=== PATIENT | male | born 1945 | race Caucasian/White ===

== ENCOUNTER 2016-11-27 20:57 | Inpatient (IN) | payer MEDICAID, MEDICARE, OTHER ==
[~2016-11-27] VITALS: Ht 177.8 cm; Wt 93.4 kg
--- NOTE | 2016-11-27 21:10 | NUR ---
PT BB RA; FEVER AT SNF. PT NONVERBAL. RR EVEN AND UNLABORED. NO SOB NOTED. NAD NOTED. NO NVD AT THIS TIME. PT NOT DIAPHORETIC. PT GOWNED AND PLACED ON MONITOR WAITING FOR MD LIU.
[2016-11-27 21:24] LABS: BASOPHILS # (AUTO) 0.2 /CMM (0.0-0.2); BASOPHILS % (AUTO) 1.8 % (0.0-2.0); HEMATOCRIT 42 % (39-51); HEMOGLOBIN 13.9 g/dL (13.5-17.5); LYMPHOCYTES # (AUTO) 0.9 /CMM (0.8-4.8); LYMPHOCYTES % (AUTO) 8.3 % (20.0-44.0); MEAN CORPUSCULAR HEMOGLOBIN 30 PG (26.0-33.0); MEAN CORPUSCULAR HGB CONC 33 g/dl (31.0-36.0); MEAN CORPUSCULAR VOLUME 89 fL (80-96); MONOCYTES # (AUTO) 0.2 /CMM (0.1-1.30); MONOCYTES % (AUTO) 1.9 % (2.0-12.0); NEUTROPHILS # (AUTO) 9.3 /CMM (1.8-8.9); PLATELET COUNT (AUTO) 113 /CMM (150-450); RDW COEFFICIENT OF VARIATION 15.8 (11.5-15.0); RED BLOOD CELL COUNT(AUTO) 4.68 MIL/uL (4.5-6.0); WHITE BLOOD COUNT (AUTO) 10.6 K/uL (4.3-11.0)
[2016-11-27] MEDS ORDERED: IV SET PRIMARY 1 EA INFUS.SET MC ONE ×2 (21:24→23:28)
[2016-11-27] MEDS ORDERED: IV NS 0.9% 3,000 ML ONE (21:24)
[2016-11-27] MEDS ORDERED: VANCOMYCIN 1 GM in IV D5W 250 ML IV ONE (21:30)
[2016-11-27] MEDS ORDERED: IV NS 0.9% 1,000 ML BAG IV ONE (21:30)
[2016-11-27] MEDS ORDERED: LEVOFLOXACIN 750 MG /D5W 150ML 150 ML IV ONE (21:30)
--- NOTE | 2016-11-27 21:30 | NUR ---
URINE COLLECTED. XRAY AT BEDSIDE
[2016-11-27 21:38] LABS: CALCIUM, SERUM 9.2 mg/dL (8.5-10.1); CREATININE 2.5 mg/dL (0.6-1.3); POTASSIUM 5.1 mmol/L (3.5-5.1)
[2016-11-27 21:40] LABS: INR 1.26 (0.87-1.13); PROTHROMBIN TIME 13.3 SECS (9.5-12.7)
[2016-11-27 21:44] LABS: APPEARANCE,URINE Clear (CLEAR); BILIRUBIN,URINE Negative (NEGATIVE); BLOOD, URINE Moderate Ery/uL (NEGATIVE); COLOR,URINE Yellow (YELLOW); KETONES,URINE Negative (NEGATIVE); LEUKOCYTE ESTERASE ,URINE Negative (NEGATIVE); NITRITE, URINE Negative (NEGATIVE); PH,URINE 5.5 (5.0-8.0); PROTEIN,URINE >=300 mg/dl (NEGATIVE); UGLUCOSE Negative (NEGATIVE)
[2016-11-27 21:45] LABS: TROPONIN I 0.269 ng/mL (0.00-0.056)
[2016-11-27 21:46] LABS: LACTIC ACID 1.6 mmol/L (0.4-2.0)
[2016-11-27] MEDS ORDERED: IV SET PRIMARY PUMP SET 1 EA INFUS.SET MC ONE ×3 (21:49→23:40)
[2016-11-27] MEDS ORDERED: IV D5W 250 ML IV ONE (21:49)
[2016-11-27] MEDS ORDERED: VANCOMYCIN 1 GM VIAL ONE (21:49)
[2016-11-27 21:50] LABS: ALBUMIN 3.1 g/dL (3.4-5.0); BILIRUBIN,DIRECT 0.4 mg/dL (0.0-0.2); BILIRUBIN,TOTAL 1.1 mg/dL (0.2-1.0); TOTAL PROTEIN, SERUM 8.4 g/dL (6.4-8.2)
[2016-11-27 21:59] LABS: ADD URINE CULTURE NO; BACTERIA,URINE Few /HPF (None Seen); SQUAMOUS EPITHELIAL CELL,UR Few /HPF (None Seen); URINE AMORPHOUS URATE Many /HPF (None Seen); WBC,URINE 0-2 /HPF (0-3)
[2016-11-27 22:00] LABS: MUCUS,URINE Few /LPF (None Seen)
--- NOTE | 2016-11-27 22:22 | NUR ---
PER DR. MUHAMMAD TO HOLD IV NS BOLUS AT THIS TIME.
[2016-11-27] MEDS ORDERED: FUROSEMIDE 100 MG/10 ML VIAL ONE (22:26)
[2016-11-27] MEDS ORDERED: FUROSEMIDE 40 MG/4 ML VIAL IV ONE ×2 (22:30)
[2016-11-27] MEDS ORDERED: CEFTRIAXONE 2 G in IV D5W 100 ML IV SCH (23:00)
--- NOTE | 2016-11-27 23:03 | NUR ---
PT INTUBATED DR. PINO, VS 147/99 HR 79 02 SAT 94% 23CM AT THE LIP ET TUBE 7.5
[2016-11-27] MEDS ORDERED: PROPOFOL 100 ML IV ONE (23:09)
--- NOTE | 2016-11-27 23:11 | NUR ---
VENT SETTINGS AC 12, VT 550, FI02 40%, PEEP 5
[2016-11-27] MEDS ORDERED: ACETAMINOPHEN 650 MG/SUPP.RECT RC ONE (23:15)
--- NOTE | 2016-11-27 23:20 | NUR ---
DR. MUHAMMAD AT BEDSIDE FOR LP, UNSUCCESSFUL.
[2016-11-27 23:23] VITALS: BP 141/86
--- NOTE | 2016-11-27 23:26 | NUR ---
RT NOTE PT INTUBATED PER MD ORDER. 7.5 ETT 23 @ LIP. ALARMS SET PER PROTOCOL AND AUDIBLE. VENT PLUGGED IN TO RED OUTLET. AMBU BAG AT BEDSIDE. Addendum: 11/27/16 at 2327 by RAQUEL MAGAÑA RT Amended: Links added.
[2016-11-27] MEDS ORDERED: CEFTRIAXONE 1GM BAG (ER ONLY) 50 ML IV ONE (23:28)
[2016-11-27] MEDS ORDERED: PROPOFOL 100 ML IV PRN (23:30)
--- NOTE | 2016-11-27 23:59 | NUR ---
REPORT GIVEN TO BUSINESS TRAVEL CONSULTANT ELVIRA FOR BED 259
[2016-11-28] VITALS (34 sets, daily range): BP systolic 96–141; BP diastolic 50–81
[2016-11-28] MEDS ORDERED: ACETAMINOPHEN 325 MG/SUPP.RECT RC PRN
--- NOTE | 2016-11-28 00:20 | NUR ---
PT TRANSFERED PER [facility] PROTOCOL.
[2016-11-28] MEDS ORDERED: *INSULIN REGULAR(HUMULIN R)HUM 100 UNIT/ML VIAL SQ PRN (01:30)
[2016-11-28] MEDS ORDERED: MAGNESIUM HYDROXIDE 30 ML UDC PO PRN (01:30)
[2016-11-28] MEDS ORDERED: ACETAMINOPHEN 650 MG/SUPP.RECT RC PRN ×2 (01:30)
[2016-11-28] MEDS ORDERED: ONDANSETRON HCL/PF 4 MG/2 ML VIAL IVP PRN (01:30)
[2016-11-28] MEDS ORDERED: INSULIN REGULAR, HUMAN 100 UNIT/ML 3 ML VIAL SQ PRN (01:30)
[2016-11-28] MEDS ORDERED: DEXTROSE 50%-WATER 50 ML DISP.SYRIN IV PRN ×2 (01:30→03:00)
--- NOTE | 2016-11-28 02:00 | NUR ---
SPORT PSYCHOLOGIST PER MD TAY TO HAVE VANCO/ZOSYN DOSED IN MORNING PT HAS ALREADY RECEIVED ANTIBIOTICS IN ER. CONTINUE TO MONITOR.
--- NOTE | 2016-11-28 02:08 | NUR ---
PT RECIEVED ON VENT VIA ETT, SETTINGS CHARTED AMBU BAG AT BEDSIDE ALARMS SET AND AUDIBLE SUCTIONED A SMALL AMOUNT OF THICK GILL SECRETIONS BREATH SOUNDS EQUAL BILATERAL COARSE PT RECEIVING NO BREATHING TX AT THIS TIME Addendum: 11/28/16 at 0213 by YOKO OCHOA RT Amended: Links added.
--- NOTE | 2016-11-28 03:00 | NUR ---
ASSOCIATE DIRECTOR DATA & ANALYTICS SECOND CALL PLACED TO ISR[facility] FOR CXR RESULTS. PER [facility] THEY WILL READ IT NEXT. CONTINUE TO MONITOR.
--- NOTE | 2016-11-28 03:39 | NUR ---
DAIRY EQUIPMENT INSTALLER BL SOFT WRIST RESTRAINTS PT EASILY WAKES UP DURING TURNING AND ASSESSMENT. WRISTS PLACED FOR PT SAFETY. CONTINUE TO MONITOR.
[2016-11-28] MEDS: BLOOD SUGAR DIAGNOSTIC 1 EACH STRIP IN SCH ×3 (05:33→17:24)
[2016-11-28] MEDS ORDERED: INSULIN REGULAR, HUMAN 100 UNIT/ML 10 ML VIAL ONE (05:55)
[2016-11-28] MEDS: INSULIN REGULAR, HUMAN 100 UNIT/ML 3 ML VIAL SQ PRN (06:06)
[2016-11-28 06:21] LABS: ABG BASE EXCESS 3.8 mmol/L; ABG OXYGEN SATURATION 97.6 % (92.0-98.5); ABG PCO2 33.1 mmHg (35.0-45.0); ABG PO2 106.7 mmHg (75.0-100.0); ABG TOTAL HEMOGLOBIN 11.7 G/dL (13.5-18.0); AaDO2 68.3 mmHg; COHb 0.8 % (0.5-1.5); MetHb 0.9 % (0.0-1.5); O2Hb 95.9 % (94.0-97.0); PEEP,BG 5 cm H2O; SITE, ABG Right Brachial; VENT MODE, BG AC 12 550 30% +5; VT, ABG 550 mL
[2016-11-28] MEDS ORDERED: BLOOD SUGAR DIAGNOSTIC 1 EACH STRIP VI SCH (07:30)
[2016-11-28] MEDS ORDERED: BUMETANIDE INJ 8 MG in IV NS 0.9% 48 ML IV ONE (08:00)
--- NOTE | 2016-11-28 08:00 | NUR ---
ICU/RN - Initial Notes Received pt in bed awake, orally intubated to mechanical vent with settings as ordered. Pt able to track and follow commands, alert to self. Reorientation provided to pt to place and time. On bilateral soft wrist restraints for safety, as pt removes tubes and lines. Tele reads Vpace 67. LCW pacemaker noted, with incision site covered with dry dressing. Funk catheter intact draining urine to gravity. IV patent and intact. Safety and comfort measures in place. Heels offloaded. Repositioned for comfort. Will continue to monitor pt closely.
[2016-11-28 08:08] LABS: BASOPHILS % (AUTO) 0.3 % (0.0-2.0); HEMATOCRIT 33 % (39-51); HEMOGLOBIN 11.1 g/dL (13.5-17.5); LYMPHOCYTES # (AUTO) 1.2 /CMM (0.8-4.8); LYMPHOCYTES % (AUTO) 9.8 % (20.0-44.0); MEAN CORPUSCULAR HEMOGLOBIN 30 PG (26.0-33.0); MEAN CORPUSCULAR HGB CONC 33 g/dl (31.0-36.0); MEAN CORPUSCULAR VOLUME 90 fL (80-96); MONOCYTES # (AUTO) 1.3 /CMM (0.1-1.30); MONOCYTES % (AUTO) 10.8 % (2.0-12.0); NEUTROPHILS # (AUTO) 9.3 /CMM (1.8-8.9); NEUTROPHILS % (AUTO) 79.1 % (43.0-81.0); PLATELET COUNT (AUTO) 107 /CMM (150-450); RED BLOOD CELL COUNT(AUTO) 3.72 MIL/uL (4.5-6.0); WHITE BLOOD COUNT (AUTO) 11.7 K/uL (4.3-11.0)
[2016-11-28 08:12] LABS: CREATININE 2.5 mg/dL (0.6-1.3); POTASSIUM 3.8 mmol/L (3.5-5.1)
[2016-11-28 08:17] LABS: ALBUMIN 2.4 g/dL (3.4-5.0); BILIRUBIN,TOTAL 0.9 mg/dL (0.2-1.0); MAGNESIUM 2.1 mg/dL (1.8-2.4); PHOSPHORUS 3.6 mg/dL (2.5-4.9); TOTAL PROTEIN, SERUM 6.6 g/dL (6.4-8.2)
[2016-11-28] MEDS ORDERED: TAMS0.4C34 PO (08:22)
[2016-11-28] MEDS ORDERED: CARV25TA PO (08:22)
[2016-11-28] MEDS ORDERED: FURO-144 PO (08:22)
[2016-11-28] MEDS ORDERED: OXYB5TAB11 PO (08:22)
[2016-11-28] MEDS ORDERED: ASPI81TA2 PO (08:22)
[2016-11-28] MEDS ORDERED: CHOL200026 PO (08:22)
[2016-11-28] MEDS ORDERED: CLOP75TA2 PO (08:22)
[2016-11-28] MEDS ORDERED: BENA20TA2 PO (08:22)
[2016-11-28] MEDS ORDERED: HYDR-4076 PO (08:22)
[2016-11-28] MEDS ORDERED: ATOR40TA PO (08:22)
[2016-11-28] MEDS ORDERED: VIT1CAPS32 PO (08:22)
[2016-11-28] MEDS ORDERED: ROSU40TA20 PO (08:22)
[2016-11-28] MEDS ORDERED: HYDR-552 PO (08:22)
[2016-11-28] MEDS ORDERED: LEVO50TA8 PO (08:22)
[2016-11-28] MEDS ORDERED: MORP15TA10 PO (08:22)
[2016-11-28 08:25] LABS: THYROID STIMULATING HORMONE 2.388 uIU/mL (0.358-3.74)
[2016-11-28] MEDS ORDERED: IV SET PRIMARY PUMP SET 1 EA INFUS.SET MC ONE ×2 (08:27→09:20)
[2016-11-28] MEDS: PANTOPRAZOLE 40 MG VIAL IV SCH (08:31)
[2016-11-28] MEDS ORDERED: FEE PK DOSING 1 MIN EA MC ONE (08:33)
[2016-11-28] MEDS: HEPARIN SODIUM, PORCINE 5000 UNITS/1 ML VIAL SQ SCH ×2 (08:33→20:12)
[2016-11-28] MEDS ORDERED: FUROSEMIDE 40 MG/4 ML VIAL IV SCH (09:00)
[2016-11-28] MEDS ORDERED: IV NS 0.9% 250 ML IV ONE (09:20)
[2016-11-28] MEDS ORDERED: SECONDARY IV SET 1 EA INFUS.SET MC ONE ×2 (09:20→20:34)
[2016-11-28] MEDS: PIPERACILLIN /TAZOBACTAM 3.375 G in IV D5W 50 ML IV SCH ×4 (09:39→23:46)
--- NOTE | 2016-11-28 10:34 | NUR ---
WOUND CARE CONSULT: PT PRESENTS WITH MULTIPLE SKIN ISSUES INCLUDING LEFT CHEST INCISION WHICH IS CLOSED WITH SOME CRUSTING, SACRAL DEEP TISSUE INJURY IN EVOLUTION EXTENDING TO BUTTOCKS, AND RT DORSAL FOOT DISCOLORED AREA, ALL PRESENT ON ADMISSION. FIRST STEP MATTRESS ORDERED. PT TO BE TURNED AND REPOSITIONED EVERY 2 HRS PT CONDITION PERMITS, HEELS FLOATED. ALL SKIN PROTECTION AND WOUND RECOMMENDATIONS DISCUSSED WITH NURSING STAFF. WILL SEE PRN. PINO IN AGREEMENT WITH PLAN OF CARE. Addendum: 11/28/16 at 1042 by GENNA BECKMAN WNDNU Amended: Links added.
--- NOTE | 2016-11-28 10:40 | NUR ---
Vt changed to 500 per MD order. Addendum: 11/28/16 at 1357 by MAMI ARELLANO RT Amended: Links added.
[2016-11-28] MEDS ORDERED: ETOMIDATE 2 MG/ML VIAL IV ONE (10:58)
[2016-11-28] MEDS ORDERED: ROCURONIUM BROMIDE 50 MG/5 ML IV ONE (10:58)
[2016-11-28] MEDS ORDERED: FEE EMEERGENCY 1 MIN EA MC ONE (10:59)
[2016-11-28] MEDS ORDERED: HYDROGEL DRESSING 90 GM TUBE TP PRN (11:00)
[2016-11-28] MEDS ORDERED: Z GUARD REMEDY 2 OZ OINT TP PRN (11:00)
[2016-11-28] MEDS: HYDROGEL DRESSING 90 GM TUBE TP SCH (11:09)
[2016-11-28] MEDS ORDERED: DC PROPOFOL WHEN EXTUBATED XX PRN (13:00)
--- NOTE | 2016-11-28 13:54 | NUR ---
Pt placed on SIMV 4 PS 12 +5 per MD order. Addendum: 11/28/16 at 1357 by MAMI BRAVO Amended: Links added.
[2016-11-28 14:17] LABS: CREATININE, URINE 24.5 MG/DL (30.0-125.0)
[2016-11-28 14:41] LABS: ABG BASE EXCESS 3.2 mmol/L; ABG OXYGEN SATURATION 97.8 % (92.0-98.5); ABG PCO2 33.2 mmHg (35.0-45.0); ABG PO2 116.8 mmHg (75.0-100.0); ABG TOTAL HEMOGLOBIN 11.9 G/dL (13.5-18.0); AaDO2 58.1 mmHg; COHb 1.4 % (0.5-1.5); O2Hb 95.5 % (94.0-97.0); SITE, ABG Right Radial; VENT MODE, BG SIMV 4 500 PS 12 30% +5
[2016-11-28 15:07] LABS: EOSINOPHIL,URINE None Seen
[2016-11-28 15:10] LABS: APPEARANCE,URINE CLEAR (CLEAR); BILIRUBIN,URINE NEGATIVE (NEGATIVE); BLOOD, URINE 1+ Ery/uL (NEGATIVE); COLOR,URINE YELLOW (YELLOW); KETONES,URINE NEGATIVE (NEGATIVE); LEUKOCYTE ESTERASE ,URINE NEGATIVE (NEGATIVE); NITRITE, URINE NEGATIVE (NEGATIVE); PH,URINE 5.5 (5.0-8.0); PROTEIN,URINE TRACE mg/dl (NEGATIVE); UGLUCOSE NEGATIVE (NEGATIVE); UROBILINOGEN,URINE 0.2 EU/dL (0.2)
--- NOTE | 2016-11-28 15:15 | NUR ---
ICU/RN - Notes Wound treatment carried out as ordered. Bed bath provided for pt. Pt repositioned for comfort.
[2016-11-28 15:19] LABS: ADD URINE CULTURE NO; BACTERIA,URINE None seen /HPF (None Seen); RBC,URINE 0-2 /HPF (0-2); SQUAMOUS EPITHELIAL CELL,UR Few /HPF (None Seen); WBC,URINE 0-2 /HPF (0-3)
--- NOTE | 2016-11-28 15:41 | NUR ---
Extubated pt per MD order. Pt on O2 via nasal cannula, showing no signs of respiratory distress at this time. Addendum: 11/28/16 at 1545 by MAMI ARELLANO RT Amended: Links added.
--- NOTE | 2016-11-28 15:45 | NUR ---
ICU/RN - Notes Pt extubated per MD order by RT and placed on nasal cannula @ 3lpm. No respiratory distress. Family called per pt's request, Catracho (Brother) [phone]. Pt given sip of water, able to swallow with no s/s of aspiration. Addendum: 11/28/16 at 1632 by DELIA DEJESUS RN Bilateral soft wrist restraints discontinued as pt is alert and able to follow commands post extubation.
--- NOTE | 2016-11-28 18:40 | NUR ---
ICU/RN - Closing Notes Pt in bed with eyes closed, asleep. Respirations are even and unlabored. All needs met and attended. Safety and comfort measures in place. Will endorse to night nurse for continuity of care.
[2016-11-28] MEDS: VANCOMYCIN 1 GM in IV D5W 250 ML IV SCH (20:10)
[2016-11-29] VITALS (18 sets, daily range): BP systolic 97–153; BP diastolic 61–98
[2016-11-29] MEDS: BLOOD SUGAR DIAGNOSTIC 1 EACH STRIP IN SCH ×4 (00:04→17:34)
[2016-11-29 05:05] LABS: BASOPHILS # (AUTO) 0.1 /CMM (0.0-0.2); BASOPHILS % (AUTO) 0.5 % (0.0-2.0); EOSINOPHILS # (AUTO) 0.2 /CMM (0.0-0.7); EOSINOPHILS % (AUTO) 1.5 % (0.0-6.0); HEMATOCRIT 37 % (39-51); LYMPHOCYTES # (AUTO) 1.6 /CMM (0.8-4.8); LYMPHOCYTES % (AUTO) 13.5 % (20.0-44.0); MEAN CORPUSCULAR HEMOGLOBIN 30 PG (26.0-33.0); MEAN CORPUSCULAR HGB CONC 33 g/dl (31.0-36.0); MEAN CORPUSCULAR VOLUME 91 fL (80-96); MONOCYTES # (AUTO) 1.1 /CMM (0.1-1.30); MONOCYTES % (AUTO) 9.4 % (2.0-12.0); NEUTROPHILS % (AUTO) 75.1 % (43.0-81.0); PLATELET COUNT (AUTO) 117 /CMM (150-450); RDW COEFFICIENT OF VARIATION 17.5 (11.5-15.0); RED BLOOD CELL COUNT(AUTO) 4.07 MIL/uL (4.5-6.0)
[2016-11-29 05:27] LABS: TROPONIN I 0.139 ng/mL (0.00-0.056)
[2016-11-29] MEDS: PIPERACILLIN /TAZOBACTAM 3.375 G in IV D5W 50 ML IV SCH ×3 (05:27→17:34)
[2016-11-29 05:30] LABS: ALBUMIN 2.6 g/dL (3.4-5.0); BILIRUBIN,TOTAL 1.3 mg/dL (0.2-1.0); CALCIUM, SERUM 8.2 mg/dL (8.5-10.1); CREATININE 2.5 mg/dL (0.6-1.3); POTASSIUM 3.5 mmol/L (3.5-5.1); TOTAL PROTEIN, SERUM 7.3 g/dL (6.4-8.2)
[2016-11-29 06:16] LABS: BAND % (MANUAL) 1 % (0.0-5.0); EOSINOPHILS % (MANUAL) 2 % (0-4); LYMPHOCYTES % (MANUAL) 7 % (16-48); MONOCYTES % (MANUAL) 14 % (0-11.0); NEUTROPHILS % (MANUAL) 76 (42-76)
[2016-11-29] MEDS ORDERED: POTASSIUM CHLORIDE 20 MEQ TAB.PRT.SR PO ONE (06:26)
[2016-11-29] MEDS ORDERED: BUMETANIDE INJ 0.25 MG/ML VIAL ONE ×2 (06:27→06:32)
[2016-11-29] MEDS ORDERED: IV NS 0.9% 50 ML IV ONE (06:28)
[2016-11-29] MEDS ORDERED: BUMETANIDE INJ 8 MG in IV NS 0.9% 48 ML IV ONE (06:30)
[2016-11-29] MEDS: POTASSIUM CHLORIDE 20 MEQ TAB.PRT.SR PO SCH ×3 (06:35→10:07)
--- NOTE | 2016-11-29 08:00 | NUR ---
ICU/RN - Initial Notes Received pt in bed awake and alert x3. No acute distress. Respirations are even and unlabored. No s/s of pain or discomfort. On tele reading Vpacing 69. IV patent and intact, Bumex drip infusing well. Funk catheter intact draining urine to gravity. Safety and comfort measures in place. Will continue to monitor pt closely.
[2016-11-29] MEDS: PANTOPRAZOLE 40 MG VIAL IV SCH (08:13)
[2016-11-29] MEDS: HYDROGEL DRESSING 90 GM TUBE TP SCH (08:14)
[2016-11-29] MEDS: HEPARIN SODIUM, PORCINE 5000 UNITS/1 ML VIAL SQ SCH ×2 (08:14→20:38)
[2016-11-29 12:30] LABS: VIT D, 25-HYDROXY 22.7 ng/mL (30.0-100.0)
--- NOTE | 2016-11-29 15:10 | NUR ---
ICU/RN - Notes Pt cleared for transfer to Telemetry. Report called to JAIR Cm for continuity of care.
[2016-11-29 15:45] LABS: *SPE A/G RATIO 0.6 (0.7-1.7); *SPE ALBUMIN 2.4 g/dL (2.9-4.4); *SPE ALPHA-1-GLOBULIN 0.2 g/dL (0.0-0.4); *SPE ALPHA-2-GLOBULIN 0.8 g/dL (0.4-1.0); *SPE BETA GLOBULIN 1.1 g/dL (0.7-1.3); *SPE GLOBULIN, TOTAL 3.7 g/dL (2.2-3.9); *SPE M-SPIKE Not Observed g/dL (Not Observed); *SPE PROTEIN TOTAL 6.1 g/dL (6.0-8.5); *SPEGAMMA GLOBULIN 1.6 g/dL (0.4-1.8)
--- NOTE | 2016-11-29 16:15 | NUR ---
ROCKET ENGINE COMPONENT MECHANIC NOTES RECEIVED PATIENT FROM ICU VIA BED, IN STABLE CONDITION, ALERT AND ORIENTED, VERBALLY RESPONSIVE, ON O2 AT 3DPM VIA NC WITH SPO2 OF 99%, INITIAL AND SKIN ASSESSMENT COMPLETED, SANTANA CATHETER DRAINING YELLOW URINE, PIV ON RIGHT HAND AND LEFT HAND PATENT AND FLUSHES WELL WITH NS, SAFETY MEASURES IN PLACED, CALL LIGHT WITHIN REACH, WILL CONTINUE TO MONITOR.
--- NOTE | 2016-11-29 16:15 | NUR ---
ICU/RN - Transfer Pt transferred to Telemetry 311-2 via ACLS protocol.
[2016-11-29] MEDS ORDERED: IV SET PRIMARY PUMP SET 1 EA INFUS.SET MC ONE ×2 (17:26→20:39)
[2016-11-29] MEDS ORDERED: SECONDARY IV SET 1 EA INFUS.SET MC ONE ×2 (17:26→20:39)
[2016-11-29] MEDS ORDERED: IV NS 0.9% 0 ML IV ONE (17:26)
--- NOTE | 2016-11-29 18:00 | NUR ---
CARTON MAKER NOTES BLOOD SUGAR 111, NO COVERAGE, DENIES PAIN OR DISCOMFORT, TURNED AND REPOSITIONED, SKIN CARE RENDERED, WILL CONTINUE TO MONITOR.
--- NOTE | 2016-11-29 19:30 | NUR ---
DIAGNOSTIC ASSISTANT NOTES PATIENT ON TELE MONITOR, V-PACING HEART RATE 60S, IN STABLE CONDITION, ON CONTINUOUS O2 WITH SPO2 > 92%, NO SOB AT THIS TIME, TURNED AND REPOSITIONED, SKIN CARE RENDERED, SAFETY MEASURES IN PLACED, CALL LIGHT WITHIN REACH, ENDORSED TO VENEER SAWYER FOR VU.
[2016-11-29] MEDS ORDERED: HYDROCODONE/APAP 5/325MG 1 EACH TABLET PO PRN (20:30)
[2016-11-29] MEDS: VANCOMYCIN 1 GM in IV D5W 250 ML IV SCH (20:37)
[2016-11-29] MEDS ORDERED: IV NS 0.9% 250 ML IV ONE (20:39)
[2016-11-30] VITALS (7 sets, daily range): BP systolic 95–145; BP diastolic 56–91
[2016-11-30] MEDS: PIPERACILLIN /TAZOBACTAM 3.375 G in IV D5W 50 ML IV SCH ×4 (00:18→17:15)
[2016-11-30] MEDS: BLOOD SUGAR DIAGNOSTIC 1 EACH STRIP IN SCH ×4 (00:18→17:37)
--- NOTE | 2016-11-30 06:50 | NUR ---
RESOURCES REPRESENTATIVE NOTES AWAKE & RESPONSIVE. NOT IN ANY DISTRESS. NO SOB NOTED. DENIES ANY PAIN OR DISCOMFORT AT THIS TIME. ON TELE V-PACING @ 60 WITH IV-HL PATENT & INTACT. AM CARE DONE. MONITORED ACCORDINGLY. CALL LIGHT WITHIN REACH. BED IN LOWEST POSITION. SR UP X 3 WITH BED ALARM ON FOR SAFETY. WILL ENDORSE TO NEXT SHIFT.
[2016-11-30 07:21] LABS: CALCIUM, SERUM 8.4 mg/dL (8.5-10.1); CREATININE 2.4 mg/dL (0.6-1.3); POTASSIUM 3.6 mmol/L (3.5-5.1)
--- NOTE | 2016-11-30 07:44 | NUR ---
PHOTOGRAPHY TEACHER NOTES PT ASLEEP AT THIS TIME. NOT IN ANY DISTRESS. NO SOB NOTED. DENIES ANY PAIN OR DISCOMFORT AT THIS TIME. ON TELE V-PACING @ 60 WITH IV-HL PATENT & INTACT. WILL CONTINUE TO MONITOR. CALL LIGHT WITHIN REACH. BED IN LOWEST POSITION WITH SIDE RAILS UP. KEPT CLEAN AND DRY.
--- NOTE | 2016-11-30 08:52 | NUR ---
PURCHASING DIRECTOR NOTES Dr. Macedo came seen and examined the patient and ordered PT eval and ordered. All orders carried out and noted. Will continue to monitor patient accordingly.
[2016-11-30] MEDS: HYDROGEL DRESSING 90 GM TUBE TP SCH (09:09)
[2016-11-30] MEDS: PANTOPRAZOLE 40 MG VIAL IV SCH (09:09)
[2016-11-30] MEDS: HEPARIN SODIUM, PORCINE 5000 UNITS/1 ML VIAL SQ SCH ×2 (09:12→21:06)
[2016-11-30] MEDS ORDERED: BUMETANIDE INJ 8 MG in IV NS 0.9% 48 ML IV ONE (10:00)
[2016-11-30] MEDS ORDERED: POTASSIUM CHLORIDE 20 MEQ TAB.PRT.SR PO SCH (10:00)
--- NOTE | 2016-11-30 10:09 | NUR ---
ms rn notes Dr. velasco on site ordered KCL 20meq 1tab PO once and informed that patient is on pureed diet and ordered KCL packet 20meq PO once. All order carried out noted and verified. Will continue to monitor accordingly.
[2016-11-30] MEDS ORDERED: POTASSIUM CHLORIDE 20 MEQ POWDER PACKET PO ONE (10:30)
[2016-11-30] MEDS ORDERED: SECONDARY IV SET 1 EA INFUS.SET MC ONE (10:59)
[2016-11-30] MEDS ORDERED: ONDANSETRON HCL/PF 4 MG/2 ML VIAL IV PRN (11:30)
[2016-11-30] MEDS: INSULIN REGULAR, HUMAN 100 UNIT/ML 3 ML VIAL SQ PRN ×2 (12:09→17:34)
[2016-11-30 13:30] LABS: *SPE A/G RATIO 0.6 (0.7-1.7); *SPE ALBUMIN 2.6 g/dL (2.9-4.4); *SPE ALPHA-1-GLOBULIN 0.3 g/dL (0.0-0.4); *SPE BETA GLOBULIN 1.1 g/dL (0.7-1.3); *SPE M-SPIKE Not Observed g/dL (Not Observed); *SPE PROTEIN TOTAL 6.6 g/dL (6.0-8.5); *SPEGAMMA GLOBULIN 1.6 g/dL (0.4-1.8); PTH, INTACT 92 pg/mL (15-65)
--- NOTE | 2016-11-30 19:22 | NUR ---
MS RN CLOSING NOTES PT IN BED AWAKE. NO SIGNS OF ANY DISTRESS OR SOB NOTED. O2 IN PLACE WITH 2LPM VIA N/C. TOLERATING WELL. DENIES ANY PAIN OR DISCOMFORT AT THIS TIME. IV LINE PATENT & INTACT. MONITORED ACCORDINGLY. CALL LIGHT WITHIN REACH. BED IN LOWEST POSITION. KEPT CLEAN AND DRY. BED ALARM ON FOR SAFETY. CONTINUE TO MONITOR. WILL ENDORSE TO CUT PRESS OPERATOR NURSE.
[2016-11-30] MEDS: VANCOMYCIN 1 GM in IV D5W 250 ML IV SCH (21:00)
--- NOTE | 2016-12-01 | NUR ---
MS RN NOTES BS CHECKED 149. PT REFUSED TO HAVE INSULIN COVERAGE AT THIS TIME. EXPLAINED TO PT IMPORTANCE OF INSULIN COVERAGE IN HIS POC BUT PT STILL REFUSED. WILL CONTINUE TO MONITOR.
[2016-12-01] MEDS: BLOOD SUGAR DIAGNOSTIC 1 EACH STRIP IN SCH ×4 (00:41→17:01)
[2016-12-01] MEDS: PIPERACILLIN /TAZOBACTAM 3.375 G in IV D5W 50 ML IV SCH ×4 (00:41→17:01)
--- NOTE | 2016-12-01 06:21 | NUR ---
MS RN NOTES AWAKE & RESPONSIVE. NOT IN ANY DISTRESS. NO SOB NOTED. DENIES ANY PAIN OR DISCOMFORT AT THIS TIME. WITH IV-HL PATENT & INTACT. AM CARE DONE. MONITORED ACCORDINGLY. CALL LIGHT WITHIN REACH. BED IN LOWEST POSITION. SR UP X 3 WITH BED ALARM ON FOR SAFETY. WILL ENDORSE TO NEXT SHIFT.
[2016-12-01 07:19] LABS: ALBUMIN 2.7 g/dL (3.4-5.0); BILIRUBIN,TOTAL 1.3 mg/dL (0.2-1.0); CALCIUM, SERUM 8.5 mg/dL (8.5-10.1); CREATININE 2.7 mg/dL (0.6-1.3); MAGNESIUM 2.1 mg/dL (1.8-2.4); PHOSPHORUS 3.4 mg/dL (2.5-4.9); POTASSIUM 3.5 mmol/L (3.5-5.1); TOTAL PROTEIN, SERUM 7.3 g/dL (6.4-8.2)
[2016-12-01 08:00] VITALS: BP_SYST 112; BP_SYST 122; BP_DIAS 68
--- NOTE | 2016-12-01 08:00 | NUR ---
MS RN NOTE PT. AWAKE, ALERT AND ORIENTED X3. FORGETFUL. DENIED PAIN AND SOB. VS STABLE. SANTANA CATH IN PLACED. CALL LIGHT WITHIN REACH. SIDE RAILS UP. MONITOR CLOSELY.
[2016-12-01] MEDS: PANTOPRAZOLE 40 MG VIAL IV SCH (08:29)
[2016-12-01] MEDS: HEPARIN SODIUM, PORCINE 5000 UNITS/1 ML VIAL SQ SCH (08:29)
[2016-12-01] MEDS ORDERED: FUROSEMIDE 80 MG TABLET PO SCH (09:00)
[2016-12-01] MEDS: HYDROGEL DRESSING 90 GM TUBE TP SCH (09:14)
[2016-12-01] MEDS ORDERED: VANCOMYCIN 0.75 GM in IV D5W 250 ML IV SCH (10:00)
[2016-12-01] MEDS ORDERED: IV NS 0.9% 250 ML IV ONE (11:42)
[2016-12-01] MEDS: INSULIN REGULAR, HUMAN 100 UNIT/ML 3 ML VIAL SQ PRN (11:53)
[2016-12-01 16:00] VITALS: BP 100/64
--- NOTE | 2016-12-01 18:00 | NUR ---
NO SOB AND PAIN. TRIED TO CHANGE IV LINE, BUT REFUSED. REPORT GIVEN TO THE [facility]. CONTACTED PT'S BROTHER(ANTHONY ALVAREZ) AND INFORMED TRANSFERRING. SANTANA CATH IN PLACED. TOOK PICTURES HIS WOUNDS. AWAITING AN AMBULANCE.
--- NOTE | 2016-12-01 18:31 | NUR ---
TRANSFERRED TO [facility] BY AMBULANCE.
== END 2016-12-01 18:30 | DRG 208 ==
LOC: ER 20:59 → TELE-TD 22:50 → ICU 23:32 → TELE 11-29 16:44 → MED 11-30 09:00
PROVIDERS: ADMIT Internal Medicine; ATTEND Internal Medicine
PROC: 0BH17EZ Insertion of Endotracheal Airway into Trachea, Via Natural or Artificial Opening (ICD-10-PCS; principal; 2016-11-27)
PROC: 009U3ZX Drainage of Spinal Canal, Percutaneous Approach, Diagnostic (ICD-10-PCS; 2016-11-27)
PROC: 5A1935Z Respiratory Ventilation, Less than 24 Consecutive Hours (ICD-10-PCS; 2016-11-28)
DX: J96.01 Acute respiratory failure with hypoxia (principal); J15.6 Pneumonia due to other Gram-negative bacteria; G92 Toxic encephalopathy; N17.0 Acute kidney failure with tubular necrosis; I21.4 Non-ST elevation (NSTEMI) myocardial infarction; I50.33 Acute on chronic diastolic (congestive) heart failure; R65.20 Severe sepsis without septic shock; D68.59 Other primary thrombophilia; I13.0 Hypertensive heart and chronic kidney disease with heart failure and stage 1 through stage 4 chronic kidney disease, or unspecified chronic kidney disease; I48.91 Unspecified atrial fibrillation; E03.9 Hypothyroidism, unspecified; N18.9 Chronic kidney disease, unspecified; E78.5 Hyperlipidemia, unspecified; E11.69 Type 2 diabetes mellitus with other specified complication; F29 Unspecified psychosis not due to a substance or known physiological condition; F32.9 Major depressive disorder, single episode, unspecified; E11.22 Type 2 diabetes mellitus with diabetic chronic kidney disease; Z95.0 Presence of cardiac pacemaker
CPT/HCPCS: 31720; 36415; 36600; 71010-TC; 74000-TC; 76770-TC; 80048-TC; 80053-TC; 80061-TC; 80076-TC; 80202-TC; 81000-TC; 82306; 82550-TC; 82570-TC; 82803-TC; 82962-TC; 83605-TC; 83735-TC; 83880; 83970; 84100-TC; 84155; 84155-TC; 84165; 84300-TC; 84439-TC; 84443-TC; 84484-TC; 85025-TC; 85730-TC; 87040-TC; 87070-TC; 87081-TC; 87400; 92611-TC; 93307-TC; 94002-TC; 94640-TC; 94799-TC; 97001-TC; 97530-TC; 99082-TC; A4216; A4606; A6248; A6253; A6402; C9113; J0696; J1644; J1815; J1940; J2543; J3370; J3490; J7030; J7050; J7060; Z7610